=== PATIENT | male | born 2005 | race Hispanic/Latino ===

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

== ENCOUNTER 2023-12-28 13:51 | Emergency (ER) | payer BC ==
--- NOTE | 2023-12-28 14:40 | RAD REPORT ---
EXAMINATION: US LEFT UPPER EXTREMITY VENOUS DOPPLER CLINICAL INDICATION: left arm swelling TECHNIQUE: Complete bilateral duplex sonography of the LEFT upper extremity veins was performed. The examination included compression for vein patency, color Doppler imaging and flow augmentation in response to distal compression of the internal jugular, brachiocephalic, subclavian, axillary, brachi al, radial, ulnar, cephalic and basilic veins. COMPARISON: No prior exam. FINDINGS: Duplex sonography testing of the veins of the LEFT upper extremity was performed. Color flow imaging shows all veins to be compressible with [id number] color filling. Pulsatile and phasic flow is present within all upper extremity deep and superficial veins examined. IMPRESSION: There is no deep vein or superficial vein thrombosis.
--- NOTE | 2023-12-28 14:41 | RAD REPORT ---
EXAM: Extremity Nonvascular Limited HISTORY: left upper arm swelling COMPARISON: None TECHNIQUE: Sonographic grayscale and color flow imaging of the left elbow and arm region including th e region of interest as described by the patient. FINDINGS: No suspicious mass or fluid collection detected in the area of interest. IMPRESSION: Negative limited study.
[2023-12-28 15:04] LABS: Absolute Eosinophils 0.1 K/uL (0-0.5); Absolute Monocytes 0.5 K/uL (0.1-1.3); Absolute Neutrophil 4.3 K/uL (1.8-8.0); Basophils % 0.4 % (0-1.3); Eosinophils % 0.8 % (0-4.4); Hematocrit 45.6 % (39.6-49.0); Hemoglobin 15.8 g/dL (13.6-17.9); Lymphocytes % 28.9 % (15.3-44.8); MCH 29.5 pg (27.0-35.0); MCHC 34.7 g/dL (32.0-36.0); MCV 85.1 fL (80-100); MPV 9.9 fL (7.6-11.3); Monocytes % 6.8 % (3.3-12.3); Neutrophils % 63.1 % (41.7-73.7); Nucleated Red Blood Cells % 0.1 % (0-0); Platelets 179 thou/uL (152-406); RBC Red Blood Cell Count 5.35 M/uL (4.33-5.43); Red Cell Distribution Width 12.2 % (12.1-15.2)
[2023-12-28 15:23] LABS: Anion Gap 7.5 mEq/L (5.0-15.0); Potassium 3.5 mEq/L (3.5-5.1)
--- NOTE | 2023-12-28 15:25 | ER ---
Nurse's Notes [facility] Name: Michael Rg Age: 18 yrs Sex: Male : 2005 Arrival Date: 12/28/2023 Time: 13:51 Bed 3 Private MD: Diagnosis: Localized swelling, mass and lump, left upper limb Presentation: 12/27 14:00 Chief complaint: Patient states: arm swelling LUE, started today. Coronavirus screen: ko1 At this time, the client does not indicate any symptoms associated with coronavirus-19. Ebola Screen: No symptoms or risks identified at this time. Initial Sepsis Screen: Does the patient meet any 2 criteria? No. Patient's initial sepsis screen is negative. Does the patient have a suspected source of infection? No. Patient's initial sepsis screen is negative. Risk Assessment: Do you want to hurt yourself or someone else? Patient reports no desire to harm self or others. Onset of symptoms was December 28, 2023. 14:00 Method Of Arrival: Ambulatory ko1 14:00 Acuity: REGAN 3 ko1 Triage Assessment: 14:02 General: Appears in no apparent distress. Behavior is calm, cooperative, appropriate ko1 for age. Pain: Denies pain. Historical: - Allergies: 14:02 No Known Allergies; ko1 - Home Meds: 14:02 None [Active]; ko1 - PMHx: 14:02 Autism; ko1 - PSHx: 14:02 None; ko1 - Immunization history:: Adult Immunizations up to date. - Infectious Disease History:: Denies. - Social history:: Smoking status: Patient denies any tobacco usage or history of. - Family history:: not pertinent. - Hospitalizations: : No recent hospitalization is reported. Screenin:33 [facility] ED Fall Risk Assessment (Adult) History of falling in the last 3 months, ll1 including since admission No falls in past 3 months (0 pts) Confusion or Disorientation No (0 pts) Intoxicated or Sedated No (0 pts) Impaired Gait No (0 pts) Mobility Assist Device Used No (0 pt) Altered Elimination No (0 pt) Score/Fall Risk Level 0 - 2 = Low Risk Maintained a safe environment, Hourly rounding (assess needs \T\ fall precautionary measures) done. Abuse screen: Denies injuries from another. Nutritional screening: No deficits noted. Tuberculosis screening: No symptoms or risk factors identified. Assessment: 14:55 General: Appears in no apparent distress. Behavior is calm, cooperative, appropriate ll1 for age. Pain: Denies pain. Musculoskeletal: Circulation, motion, and sensation intact. Capillary refill < 3 seconds, Swelling present in left tricep and left bicep Reports swelling LUE. 15:32 Reassessment: No changes from previously documented assessment. Patient and/or family ll1 updated on plan of care and expected duration. Pain level reassessed. Patient is alert, oriented x 3, equal unlabored respirations, skin warm/dry/pink. Vital Signs: 14:00 BP 126 / 78; Pulse 62; Resp 15; Temp 98.2; Pulse Ox 100% ; ko1 15:33 BP 99 / 68; Pulse 55; Resp 15; Pain 0/10; ll1 15:33 Pain Scale: Adult ll1 ED Course: 13:54 Patient arrived in ED. mg5 13:54 Merrick Naranjo MD is Attending Physician. rn 14:01 Triage completed. ko1 14:02 Arm band placed on right wrist. Patient placed in waiting room, Patient notified of ko1 wait time. 14:34 US Extrmty Nonvasular Limited In Process Unspecified. EDMS 14:34 UPPER EXTREMITY VENOUS UNILATE In Process Unspecified. EDMS 14:38 Fabiana Carrillo, JUSTEN is Primary Nurse. ap3 14:53 Missed attempt(s): 22 gauge in right antecubital area. Bleeding controlled, band aid ll1 applied, catheter tip intact. 14:54 Inserted saline lock: 22 gauge in right antecubital area, using aseptic technique. ll1 Blood collected. Flushed with 10 mL NS. 15:32 No provider procedures requiring assistance completed. IV discontinued, intact, ll1 bleeding controlled, No redness/swelling at site. Pressure dressing applied. 15:33 Patient has correct armband on for positive identification. Bed in low position. ll1 Provided Education on: finish all prescribed antibiotics. Cardiac monitoring not applicable on this patient. Administered Medications: No medications were administered Medication: 15:33 VIS not applicable for this client. ll1 Outcome: 15:24 Discharge ordered by MD. rn 15:33 Discharged to home ambulatory, ll1 15:33 Condition: stable 15:33 Discharge instructions given to patient, family, Instructed on discharge instructions, follow up and referral plans. medication usage, Demonstrated understanding of instructions, follow-up care, medications, Prescriptions given X 1, 15:34 Patient left the ED. ll1 Signatures: Dispatcher [employer] EDMerrick Jimenez MD MD rn Prokisch, Amanda, RN RN [id number] Fabiana Carrillo RN RN ll1 Sandra Mehta RN RN lucius Cheryl Spencer 5
--- NOTE | 2023-12-28 15:26 | EDPHYS ---
Physician Documentation [facility] Name: Michael Rg Age: 18 yrs Sex: Male : 2005 Arrival Date: 12/28/2023 Time: 13:51 Bed 3 Private MD: ED Physician Merrick Naranjo HPI: 12/27 14:48 This 18 yrs old Male presents to ER via Ambulatory with complaints of Arm rn Problem. 14:48 The patient or guardian complains of swelling. The complaints affect the left bicep and rn left tricep. Onset: The symptoms/episode began/occurred today. Modifying factors: The symptoms are alleviated by nothing. the symptoms are aggravated by nothing. Severity of symptoms: At their worst the symptoms were mild, in the emergency department the symptoms are unchanged. The patient has not experienced similar symptoms in the past. Patient noticed swelling to left upper arm today. Denies pain, reports "feels tight". No new rash. No known exposure. Was cleaning gutters yesterday but denies any acute injury or pain while doing so. No direct trauma or fall. No swelling elsewhere. Swelling does not pass distal to left elbow and is not proximal to left shoulder. Has never happened before. No history of DVT or PE. Denies weakness. States was working out recently as well but does not recall an acute traumatic event or tear.. Historical: - Allergies: 14:02 No Known Allergies; ko1 - Home Meds: 14:02 None [Active]; ko1 - PMHx: 14:02 Autism; ko1 - PSHx: 14:02 None; ko1 - Immunization history:: Adult Immunizations up to date. - Infectious Disease History:: Denies. - Social history:: Smoking status: Patient denies any tobacco usage or history of. - Family history:: not pertinent. - Hospitalizations: : No recent hospitalization is reported. ROS: 14:48 Constitutional: Negative for fever, chills, and weight loss, Neck: Negative for injury, rn pain, and swelling, Cardiovascular: Negative for chest pain, palpitations, and edema, Respiratory: Negative for shortness of breath, cough, wheezing, and pleuritic chest pain, Abdomen/GI: Negative for abdominal pain, nausea, vomiting, diarrhea, and constipation, Back: Negative for injury and pain, MS/Extremity: Positive for swelling to left upper arm Skin: Negative for injury, rash, and discoloration, Neuro: Negative for headache, weakness, numbness, tingling, and seizure, Exam: 14:48 Constitutional: This is a well developed, well nourished patient who is awake, alert, rn and in no acute distress. Ambulatory to room without difficulty or assistance Neck: No neck swelling noted Chest/axilla: No chest tenderness Cardiovascular: Regular rate and rhythm. No pulse deficits. Respiratory: Speaking full sentences, unlabored. MS/ Extremity: Pulses equal, no cyanosis. Neurovascular intact. Full, normal range of motion. Edema noted to left upper arm between elbow and shoulder. No rash. No cyanosis. No axillary lymphadenopathy or tenderness. No swelling distal to elbow or hand. No tenderness along vascular path. No masses. Normal strength and full range of motion at shoulder and elbow. No open wounds. No pustules or lesions. Vital Signs: 14:00 BP 126 / 78; Pulse 62; Resp 15; Temp 98.2; Pulse Ox 100% ; ko1 15:33 BP 99 / 68; Pulse 55; Resp 15; Pain 0/10; ll1 15:33 Pain Scale: Adult ll1 MDM: 13:54 Medical Screening Exam initiated rn 15:23 Differential diagnosis: tendonitis, Localized allergic reaction, early cellulitis, DVT, rn strain. Data reviewed: vital signs, nurses notes, lab test result(s), radiologic studies, ultrasound, and as a result, I will discharge patient. Counseling: I had a detailed discussion with the patient and/or guardian regarding the historical points, exam findings, and any diagnostic results supporting the discharge/admit diagnosis, lab results, radiology results, the need for outpatient follow up, to return to the emergency department if symptoms worsen or persist or if there are any questions or concerns that arise at home. Special discussion: I discussed with the patient/guardian in detail that at this point there is no indication for admission to the hospital. It is understood, however, that if the symptoms persist or worsen the patient needs to return immediately for re-evaluation. ED course: Ultrasound negative for DVT or other vascular etiology. Soft tissue ultrasound negative for fluid collection or abscess. WBC normal. Unclear if this is acute localized allergic reaction versus strain versus early infection so we will place on antibiotics and given return precautions.. 12/27 14:02 Order name: CBC with Diff; Complete Time: 15:19 rn 12/27 14:02 Order name: Basic Metabolic Panel; Complete Time: 15:25 rn 12/27 14:02 Order name: US Extrmty Nonvasular Limited; Complete Time: 14:44 rn 12/27 14:06 Order name: UPPER EXTREMITY VENOUS UNILATE; Complete Time: 14:44 EDMS 12/27 14:02 Order name: IV Start; Complete Time: 14:54 rn Administered Medications: No medications were administered Disposition Summary: 12/28/23 15:24 Discharge Ordered Notes: Location: Home rn Problem: new rn Symptoms: are unchanged rn Condition: Stable rn Diagnosis - Localized swelling, mass and lump, left upper limb rn Followup: rn - With: Private Physician - When: As needed - Reason: Recheck today's complaints, Re-evaluation by your physician Discharge Instructions: - Discharge Summary Sheet rn Forms: - Medication Reconciliation Form rn - Antibiotic ornamental plaster sticker - Prescription Opioid Use rn - Patient Portal Instructions rn - Leadership Thank You Letter rn Prescriptions: - Bactrim DS 800-160 mg Oral Tablet - take 1 tablet ORAL route every 12 hours for 10 days; 20 tablet; Refills: 0, rn Product Selection Permitted Signatures: Dispatcher [employer] EDMerrick Jimenez MD MD rn Oliver, Kathy, RN RN ko1 Corrections: (The following items were deleted from the chart) 14:04 14:02 Extremity Venous Uni Ltd+[email or web address] ordered. EDMS EDMS
[2023-12-28 15:51] VITALS: TEMP 98.2; O2SAT 100
[2023-12-28 15:52] VITALS: BP 99/68
== END 2023-12-28 15:34 | disposition home or self-care (01) ==
LOC: ER 13:51
DX: R22.32 Localized swelling, mass and lump, left upper limb (principal); F84.0 Autistic disorder
CPT/HCPCS: 36415; 76882; 80048; 85025; 93971